=== PATIENT | female | born 1960 | race American Indian/Alaskan Native ===

== ENCOUNTER 2019-10-30 14:50 | Emergency (ER) | payer OTHER ==
[2019-10-30 15:17] VITALS: BP 151/83
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
[2019-10-30] MEDS ORDERED: ONDANSETRON 4 MG/2 ML INJ IV ONE (17:55)
[2019-10-30] MEDS ORDERED: MORPHINE 4 MG/1 ML INJ IV ONE (17:55)
[2019-10-30 18:24] LABS: Basophils % (Auto) 0.1 % (0.0-1.8); Eosinophils % (Auto) 0.5 % (0.0-4.3); Hematocrit 42.3 % (30.3-42.9); Hemoglobin 14.3 gm/dl (10.1-14.3); Lymphocytes # (Auto) 3.4 K/mm3 (1.2-5.4); Mean Corpuscular HGB Conc 34 % (30-34); Mean Corpuscular Volume 92 fl (79-97); Monocytes # (Auto) 0.6 K/mm3 (0.0-0.8); Monocytes % (Auto) 6.7 % (0.0-7.3); Platelet Count 242 K/mm3 (140-440); Red Cell Distribution Width 13.6 % (13.2-15.2)
[2019-10-30 18:46] LABS: Alanine Aminotransferase 32 units/L (7-56); Albumin 4.2 g/dL (3.9-5); Blood Urea Nitrogen 14 mg/dL (7-17); Calcium 9.6 mg/dL (8.4-10.2); Hemolysis Index 2
[2019-10-30 19:05] LABS: BUN/Creatinine Ratio 23
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
[2019-10-30] MEDS ORDERED: KETOROLAC 30 MG/1 ML INJ IV ONE (20:56)
== END 2019-10-30 21:35 | disposition home or self-care (01) ==
LOC: ED 14:50
DX: S06.0X0A Concussion without loss of consciousness, initial encounter (principal); S20.212A Contusion of left front wall of thorax, initial encounter; S16.1XXA Strain of muscle, fascia and tendon at neck level, initial encounter; I10 Essential (primary) hypertension; E11.9 Type 2 diabetes mellitus without complications; Z79.899 Other long term (current) drug therapy; Z88.2 Allergy status to sulfonamides; V49.49XA Driver injured in collision with other motor vehicles in traffic accident, initial encounter; Y93.89 Activity, other specified; Y92.488 Other paved roadways as the place of occurrence of the external cause; Y99.8 Other external cause status
CPT/HCPCS: 36415; 70450; 71260; 72125; 80053; 85025; 93005; 96374; 96375; 99284; J1885; J2270; J2405; Q9967